=== PATIENT | male | born 1990 | race Caucasian/White ===

== ENCOUNTER 2024-03-02 13:35 | Emergency (ER) | payer OTHER, BC, SELFPAY ==
[2024-03-02 13:36] VITALS: BP 143/85; PULSE 72; RESP 16; TEMP 36.3; O2SAT 99; BMI 27.2
--- NOTE | 2024-03-02 13:56 | RAD_ITS ---
HISTORY: trauma- L index. TECHNIQUE: XR Fingers Min 2 Views. COMPARISON: 11/11/2009. FINDINGS: BONES : No acute fracture identified. Mineralization unremarkable. JOINTS: No dislocation. Joint spaces maintained. SOFT TISSUES: Mild soft tissue swelling without radiopaque foreign body identified. RAD/Finger(s) Min 2 Views IMPRESSION: No acute fracture or dislocation identified in the left second finger. Electronically Signed: Lucero Mendez MD at 14:38 EDT ,
[2024-03-02] MEDS: Lidocaine 1% (20 ml mdv) 20 ML Vial INFILT (14:06)
--- NOTE | 2024-03-02 15:01 | EDS_ITS ---
HPI History of Present Illness Chief Complaint: Laceration Informant: patient Narrative Narrative: Patient is a 33-year-old male [id number] up-to-date on tetanus presenting with laceration to his left index finger. This occurred at work. They were working to insert steel bolts and apparently his finger got in the way and was pinched down. He was brought to the emergency room for further evaluation of this. Denies any associate numbness or tingling. No other complaints or concerns at this time Tetanus Immunization: <5 years PFSH PFSH Medical History no medical history Allergy/AdvReac Type Severity Reaction Status Date / Time No Known Allergies Allergy Verified 03/02/24 13:35 Social History Smoking Status: Never smoker ROS ROS ED Constitutional Constitutional ED: Denies chills or fever(s) Gastrointestinal Gastrointestinal: Denies nausea or vomiting Integumentary Reports other Details: left index finger laceration Neurologic Neurologic: Denies paresthesias or weakness Psychiatric Psychiatric: Denies anxiety Hematologic/Lymphatic Hematologic/Lymphatic: Denies easy bleeding or easy bruising EXAM Physical Exam Const Vital Signs: 03/02/24 13:36 Temperature 97.4 F L Temperature Source Temporal Pulse Rate 72 Respiratory Rate 16 Blood Pressure 143/85 H Blood Pressure Mean 104 Pulse Ox 99 Oxygen Delivery Method Room Air Positive well nourished and well developed General Appearance ED: well developed and NAD HEENT atraumatic Chest Wall inspection of chest normal Resp normal respiratory effort Cardio regular rhythm Rate: regular rate Extremity full ROM Extremity Narrative: Normal functioning extraction of the left index finger. No flexor tendon injury appreciated. General Extremety ED: Negative for deformity General Extremity: Negative for deformity Neuro oriented x3, moves all extremities and no focal motor deficits Neuro Narrative: Sensation intact to light touch distally of the left index finger Sensorium / Orientation: alert Psych mental status grossly normal and thought process normal Skin Skin Narrative: L-shaped laceration that is approximately 6 cm total in length. No active bleeding at this time. Is on the palmar aspect of the left hand over the second proximal phalanges. No foreign bodies appreciated. No obvious tenderness injury appreciated and laceration evaluated through full range of motion. PROC Procedures Lacerations Left index finger: Length: 2.36 in Depth: Skin Shape: L-shaped Prep: Chlorhexadine Laceration repair: Digital block, Irrigated (Wash under running water for 3 minutes), Lidocaine and Nerve block (Digital) Number of Sutures/[place]: 7 Suture Information: Ethilon, Simple and 4-0 Comment: Tolerated well, no obvious complications. Bacitracin and dressing applied afterwards. MDM MDM MDM Narrative Medical decision making narrative: Patient evaluated for laceration to his left index finger. Due to mechanism of injury and x-rays obtained to ensure that there is no underlying bony abnormality. Lower suspicion for foreign body. X-ray viewed by myself as well as radiology does not show any acute abnormality. Laceration repair performed. See procedure note. Patient given localized wound care. Counseled on suture removal in 10 days. Discussed pain control with [id number] NSAIDs and Tylenol. Workmen's Compensation paperwork is filed. Radiography Diagnostic Testing: Clinical Impression(s) from Imaging Studies Finger X-Ray 03/02/24 13:56 IMPRESSION: No acute fracture or dislocation identified in the left second finger. Electronically Signed: Lucero Mendez MD at 14:38 EDT Reading Location ID and State: [facility] / [place] Tel , Service support , Discharge Plan Triage Chief Complaint: Laceration ED Provider: Bee White Dx/Rx/DC Orders Clinical Impression: Laceration of left index finger Instructions: ED Laceration, Hand: All Closures Primary Care Provider: Aime Lauren Referrals: Aime Lauren MD [Primary Care Provider] - Activity Restrictions/Additional Instructions: Keep area clean and dry. Do not submerge your hand in water for the first 24 to 48 hours. You may apply [id number] bacitracin ointment to the wound. Sutures should be removed in 10 days. You may follow-up with Workmen's Comp. with your primary care doctor or return to emergency room. Take [id number] ibuprofen or Tylenol for pain. Print Language: [place] Disposition Disposition: Home, Self Care Discharge Date/Time: 03/02/24 15:32
== END 2024-03-02 15:32 | disposition home or self-care (01) ==
PROVIDERS: Emergency Provider Emergency Medicine; PCP Family Medicine; Visit Provider Emergency Medicine
DX: S61.211A Laceration without foreign body of left index finger without damage to nail, initial encounter (principal); Y99.0 Civilian activity done for income or pay; W23.0XXA Caught, crushed, jammed, or pinched between moving objects, initial encounter
CPT/HCPCS: 12002; 73140; 99283